=== PATIENT | female | born 1965 | race Caucasian/White ===

== ENCOUNTER → 2017-02-19 | Outpatient (CLI) | payer OTHER ==
[~2017-02-19] MED LIST: CYCL-36 PO; LORT7.5T3 PO; Z.0.NO CURRENT MEDS
--- NOTE | 2017-02-19 11:33 | RADRPT ---
EXAM DATE/TIME: 02/19/2017 11:01 [facility] COMPARISON: No previous studies available for comparison. INDICATIONS : Evalulate for penumonia, pneumothroax, or communicable disease. Pre op for right knee arthroscopy. MEDICAL HISTORY : Diverticulitis. Deep venous thrombosis. SURGICAL HISTORY : Lumpectomy. ENCOUNTER: Initial ACUITY: 1 day PAIN SCORE: 0/10 LOCATION: chest FINDINGS: PA and lateral views of the chest demonstrate the lungs to be symmetrically aerated without evidence of mass, infiltrate or effusion. Calcified nodule in the right apex likely reflects a granuloma. The cardiomediastinal contours are unremarkable. Surgical clips are seen in the left axilla. The Osseou s structures are intact. CONCLUSION: 1. No acute cardiopulmonary disease. Jaiver Corcoran MD on February 19, 2017 at 11:30 Board Certified Radiologist. This report was verified electronically.
[2017-02-19 11:45] LABS: PROTHROMBIN TIME - PATIENT 10.9 SEC (9.8-11.6)
[2017-02-19 11:54] LABS: BLOOD, URINE SMALL (NEG); GLUCOSE,URINE NEG (NEG); KETONE, URINE NEG (NEG); MUCUS URINE FEW /lpf (OCC); NITRITE,URINE NEG (NEG); PH, URINE 5.5 (5.0-8.5); SQUAMOUS EPITHELIAL CELL URINE <1 /hpf (0-5); URINE COLOR YELLOW (YELLW/STRAW)
[2017-02-19 11:55] LABS: COMMENT (UR) CULT NOT INDICATED; CULTURE IF INDICATED CULT NOT INDICATED
[2017-02-19 12:00] LABS: BICARBONATE 29.8 MEQ/L (21.0-32.0); POTASSIUM 4.1 MEQ/L (3.5-5.1)
--- NOTE | 2017-02-20 18:21 | EKG ---
Date Performed: 02/19/2017 Time Performed: 10:35:31 PTAGE: 51 years EKG: Sinus rhythm WITH SINUS ARRHYTHMIA WITH FIRST DEGREE AV BLOCK ABNORMAL ECG PREVIOUS TRACING : 09/28/2011 22.49 Compared to prior tracing no significant change DOCTOR: Anny Gurrola Interpretating Date/Time 02/20/2017 18:20:02
== END ==
LOC: CPRE 10:12
PROVIDERS: ATTEND Orthopaedic Surgery
DX: Z01.810 Encounter for preprocedural cardiovascular examination (principal); Z01.811 Encounter for preprocedural respiratory examination; Z01.812 Encounter for preprocedural laboratory examination; M65.861 Other synovitis and tenosynovitis, right lower leg; S83.241D Other tear of medial meniscus, current injury, right knee, subsequent encounter; R94.31 Abnormal electrocardiogram [ECG] [EKG]; X58.XXXD Exposure to other specified factors, subsequent encounter
CPT/HCPCS: 71020; 80048; 81001; 85610; 93005

== ENCOUNTER → 2017-02-28 | Day surgery (SDC) | payer OTHER ==
--- NOTE | 2017-02-24 18:08 | MH ---
cc: JAMESON CASTANEDA M.D. DATE OF ADMISSION 02/28/2017 ADMISSION DIAGNOSIS A medial meniscus tear of the right knee, tricompartmental chondromalacia right knee, effusion right knee, synovitis right knee, popliteal cyst right knee and pain of the right knee. HISTORY OF THE PRESENT ILLNESS The patient is a 51-year-old white female who has experienced pain of her right knee of greater than 6 months duration. She had noted the gradual onset of her discomfort generalized about the anterior aspect of her right knee unrelated to injury or unusual activity. Initially she did not seek any evaluation and conformed to conservative management which included taking ibuprofen and modifying her activity level. Unfortunately she was unable to appreciate any improvement and because of lingering symptoms elected to undergo further disposition for which she was seen by the undersigned physician in November of this year. At that time x-ray studies of the right knee were without evidence of any acute bony abnormality. The patient was diagnosed as having a transient synovitis with pain and possible internal derangement of her right knee. She was treated with the diclofenac 75 mg and followed on an outpatient basis thereafter. She described minimal benefit from the prescribed medication while remaining symptomatic with pain about her knee and thus recommendation was made to proceed with an MRI scan the results of which identified a nondisplaced horizontal and vertical tear of the posterior horn and body of the medial meniscus with severe focal chondral fissuring and fraying of the medial femoral condyle and mild to moderate tricompartmental chondral changes being noted. A small effusion was associated with moderate synovitis and a moderate to large leaking popliteal cyst. The patient returned to the office in further disposition at which time the findings of her scan were reviewed and treatment options discussed. The pros and cons of continuing with further conservative intervention versus operative treatment that would involve arthroscopic surgery and possible arthrotomy was outlined in detail. Emphasis was made regarding the fact that the decision to proceed with surgery would be left entirely to the patient's discretion. The patient felt that her symptoms have persisted for a long enough interval of time that she was ready to proceed with surgery as had been discussed, and in compliance with her wishes she has currently been scheduled for admission in order that the above be accomplished. PAST MEDICAL HISTORY Her past medical history, hospitalizations and surgeries have included: 1. A lumpectomy of the left breast subsequently being diagnosed as a malignancy for which the patient did undergo additional chemo and radiation therapy. 2. She has also been hospitalized in the past for of pulmonary embolus. She denies active medical illnesses. MEDICATIONS She takes no prescribed medications. ALLERGIES There are no indicated drug allergies. REVIEW OF SYSTEMS She does wear glasses. Denies headache, seizure or syncope. No sinus congestion or epistaxis. Auditory acuity intact. No tinnitus. No bleeding gums or dysphagia. Denies cough, shortness of breath, upper respiratory infection, pneumonia or tuberculosis. No angina or heart disease. Her appetite is good. Bowel movements are regular. No hepatitis, gallbladder disease, ulcers or hemorrhoids. There is a positive history for urinary tract infection. No kidney stones. No history of fractures. No psychiatric illness. Her remaining review of systems is unremarkable and noncontributory. FAMILY HISTORY The patient has been 29 years. Her is 63 years of age and described as being in good health. Two sons and one daughter indicated to be in good health. Family history is otherwise positive for hypertension, heart disease and breast cancer. SOCIAL HISTORY The patient completed a high school education with additional college credits. She\ is employed at a local [employer] in the [facility]. She denies active use of tobacco for at least 29 years but had been less than one-pack per day user for approximately one year prior to that time. Ethanol consumption on a limited and social basis. PHYSICAL EXAMINATION Height 5 feet 10 inches, weight 216 pounds. GENERAL: An alert, oriented and responsive 51-year-old white female who sits quietly upon examination table with no obvious distress. HEAD, EARS, EYES, NOSE, AND THROAT: Pupils are equal, round and reactive to light. Extraocular movements full. Sclerae clear. External nares clear. External auditory canals clear. Dental intact. Mucous membranes pink and moist. Pharynx clear. NECK: Supple. Active range of motion with no appreciable pain. Carotid pulse palpable bilaterally. Trachea midline. Thyroid without enlargement. LUNGS: Clear to auscultation and percussion. No CVA tenderness. No discomfort throughout the dorsal lumbar spine. HEART: Regular rhythm. No murmur or gallop. ABDOMEN: Soft, nontender. Bowel sounds present. PELVIC: Per primary care physician. EXTREMITIES: Right knee, there is no significant swelling but there is a mild fullness about the knee suspicious for an intra-articular effusion. Medial joint line tenderness. Apprehension and compression sign negative. Mild limitation of mobility at the extreme of flexion without crepitation or instability. No collateral ligamentous laxity. Rani test and drawer sign negative. Pivot shift and Wnady sign positive for medial compartment pain. Distal sensory grossly intact. Antalgic gait. NEUROLOGIC: Cranial nerves II-XII grossly intact. IMPRESSION Medial meniscus tear of the right knee, tricompartmental chondromalacia right knee, effusion right knee, synovitis right knee, popliteal cyst right knee and pain of the right knee. PLAN Arthroscopic surgery and possible arthrotomy right knee. The nature of the planned surgical procedure, the potential complications and risks associated, the expectations of surgery and the consent form were thoroughly reviewed with the patient in the presence of her prior to admission to the hospital. Margarette has indicated her full understanding regarding all of the above and given consent to proceed with treatment as outlined. Oncology clearance has been completed per Dr. Zhao Odom. Jameson Castaneda MD NBS/KK /5:29 PM /5:51 PM
[~2017-02-28] VITALS: Ht 177.8 cm; Wt 98.6 kg
[~2017-02-28] MED LIST changes: +*HYDROmorphone PF 1 MG VIAL PERIprocedural Use ONLY ONE; +*morphine SULFATE 8 MG/ML PERIprocedure ONLY ONE; +ACETAMINOPHEN/HYDROcodone 325 MG/5 MG TAB PO PRN; +CHLORHEXIDINE GLUCONATE 2 % 1 PACK (2 CLOTHS) TOPICAL PRN; -CYCL-36 PO; +DO NOT ADM ANY ANTICOAGULANT DRUGS PRN; +FAMOTIDINE 20 MG/2 ML VIAL ONE; +INSULIN HUMAN REGULAR 1,000 UNITS/10 ML VIAL SQ PRN; +KETOROLAC TROMETHAMINE 60 MG/2 ML (IM) VIAL IM ONE; +LACTATED RINGER'S 1000 ML INJ 1,000 ML IV ONE; +LACTATED RINGER'S 1000 ML IV PRN; +LIDOCAINE HCL 2% PF SOLN 10 ML VIAL INFIL ONE; -LORT7.5T3 PO; +METOPROLOL TARTRATE 25 MG TAB PO PRN; +MIDAZOLAM HCL 2 MG/2 ML VIAL ONE; +MORPHINE SULFATE 8 MG/ML INJ IM PRN; +ONDANSETRON HCL 4 MG/2 ML VIAL IV PUSH ONE; +POVIDONE IODINE 5% (ANTISEPSIS KIT) 4 APPLICATIONS EACH NARE PRN; +POVIDONE IODINE 7.5% SCRUB 118 ML BOTTLE TOPICAL SCH; +PROMETHAZINE INJ 25 MG/ML VIAL IM PRN; +PROPOFOL 200 MG/20 ML AMP IV ONE; +SODIUM CHLORID 0.9% 500 ML IV PRN; +TRIAMCINOLONE ACETONIDE 40 MG/ML VIAL I-ARTICULR ONE; -Z.0.NO CURRENT MEDS; +ceFAZolin 2 GM PREMIX 50 ML IV SCH; +ceFAZolin 2 GM PREMIX 50 ML ONE
[2017-02-28 07:29] VITALS: BP 131/61; PULSE 51; RESP 16; TEMP 98.1; O2SAT 98
[2017-02-28 12:45] VITALS: BP 117/69; PULSE 51; RESP 18; TEMP 97.8; O2SAT 98
--- NOTE | 2017-02-28 21:22 | MP ---
cc: JAMESON CASTANEDA DATE OF SURGERY 02/28/17 PREOPERATIVE DIAGNOSIS Medial meniscus tear of the right knee with tricompartmental chondromalacia POSTOPERATIVE DIAGNOSIS Medial meniscus tear of the right knee with tricompartmental chondromalacia including synovial plica right knee PROCEDURE 1. Partial medial meniscectomy right knee 2. Chondroplasty of the patellofemoral joint and resection of synovial plica right knee SURGEON Harjeet Castaneda MD ANESTHESIA General by LMA FORMAT Following the induction of satisfactory general anesthesia by LMA insertion as completed per the Department of Anesthesia, examination of the right knee revealed a satisfactory range of motion with no appreciable ligamentous instability. The extremity proper was positioned in the surgical processor knee leonard prepped with Betadine solution and draped into a sterile field in the routine manner. Prior to initiation of the actual procedure, the standard time-out protocol was completed. All parameters were appropriately addressed and confirmed by operating room personnel. Arthroscopic instrumentation was introduced through stab wound utilizing cannula with sharp and blunt trocar, the inflow irrigation by way of a medial suprapatellar portal, the arthroscope through a lateral parapatellar portal and a probe through a medial parapatellar portal. Examination of the suprapatellar pouch revealed a prominent synovial plica extending about the superior and medial aspect of the suprapatellar region. Moderate degenerative changes throughout the patellofemoral articulation consistent with chondromalacia. Within the medial compartment, a degenerative tear involving the posterior horn of the medial meniscus was noted. The adjacent articular surfaces demonstrated localized chondromalacia changes. Examination of the intercondylar region noted an intact anterior cruciate ligament. Examination of the lateral compartment was without evidence of internal derangement with lateral meniscus appearing intact. Attention was redirected to the medial compartment. Utilizing a 3.8 full radius resector, a partial medial meniscectomy was accomplished as well as debridement throughout the articular surfaces. The shaver was thereafter oriented into the patellofemoral articulation with a right pleural chondroplasty of patellofemoral joint was accomplished. Thereafter, the previously identified synovial plica was resected utilizing the same instrument. Upon completion of same, the joint space was thoroughly lavaged and suctioned dry. An intra-articular Kenalog lidocaine injection was completed. Portal sites were reapproximated with Steri-Strips over which Xeroform gauze and a bulky dry sterile dressing were placed. Anesthesia was discontinued. The patient thus transferred to a hospital stretcher and returned to the recovery room in satisfactory condition having tolerated her operative procedure well. Estimated blood loss was less than 5 mL. MD DANIKA Márquez/ /11:34 AM /9:11 PM
== END | disposition home or self-care (01) ==
LOC: HSDC 06:38
PROVIDERS: ATTEND Orthopaedic Surgery
DX: M23.211 Derangement of anterior horn of medial meniscus due to old tear or injury, right knee (principal); M71.21 Synovial cyst of popliteal space [Baker], right knee; M25.461 Effusion, right knee; M94.261 Chondromalacia, right knee; Z86.711 Personal history of pulmonary embolism; Z85.3 Personal history of malignant neoplasm of breast
CPT/HCPCS: 01400; 29881; J0690; J1170; J1885; J2250; J2270; J2405; J3010; J3301; J7120

== ENCOUNTER 2017-11-18 07:44 | Emergency (ER) | payer OTHER ==
[~2017-11-18] VITALS: Ht 177.8 cm; Wt 94.0 kg
[2017-11-18 07:47] VITALS: BP 141/87; PULSE 72; RESP 18; TEMP 98; O2SAT 98
--- NOTE | 2017-11-18 08:00 | PD ---
HPI Chief Complaint: Injury Time Seen by Provider: 07:50 Travel History International Travel<30 days: No Contact w/Intl Traveler<30days: No Traveled to known affect area: No History of Present Illness HPI This 52-year-old female complaining of pain in the left third finger. She was walking her dog. The leash was wrapped around her hand. The dog chased a raccoon in her hand was pulled forward. She is having pain in her left third finger. It is bent at the PIP and she is unable to extend. The other fingers are okay there is no injury to the wrist or any other injury PFSH Past Medical History Blood Disorders: No Cancer: Yes (LEFT BREAST CA) Cardiovascular Problems: No Diabetes: No Diverticulitis: Yes Deep Vein Thrombosis: Yes (HX OF PE LEFT LUNG) Endocrine: No Gastrointestinal Disorders: No Genitourinary: No Hepatitis: No Immune Disorder: No Implanted Vascular Access Dvce: No Musculoskeletal: No Neurologic: No Psychiatric: No Reproductive: No Respiratory: No Thyroid Disease: No ?: Not Menopausal: No Past Surgical History Abdominal Surgery: No AICD: No Cardiac Surgery: No Ear Surgery: No Endocrine Surgery: No Eye Surgery: No Genitourinary Surgery: No Gynecologic Surgery: Yes (LEFT BREAST LUMPECTOMY) Joint Replacement: No Oral Surgery: No Pacemaker: No Thoracic Surgery: No Other Surgery: No Social History Alcohol Use: Yes (OCCAS. WINE) Tobacco Use: No Substance Use: No Allergies-Medications (Allergen,Severity, Reaction): Coded Allergies: No Known Allergies (Verified Adverse Reaction, Unknown, 11/18/17) Reported Meds & Prescriptions Reported Meds & Active Scripts Active No Active Prescriptions or Reported Medications Review of Systems General / Constitutional: No: Fever, Chills HENT: No: Headaches Cardiovascular: No: Chest Pain or Discomfort Respiratory: No: Cough Gastrointestinal: No: Vomiting, Diarrhea Musculoskeletal: Positive: Pain Physical Exam Narrative GENERAL: Female SKIN: Focused skin assessment warm/dry. HEAD: Atraumatic. Normocephalic. EYES: Pupils equal and round. No scleral icterus. No injection or drainage. ENT: No nasal bleeding or discharge. Mucous membranes pink and moist. NECK: Trachea midline. No JVD. MUSCULOSKELETAL: The left arm is the affected extremity. There is no tenderness of the wrist. The middle finger is held in a flexed position and is quite tender at the PIP. There is a small wound on the dorsal surface of the PIP NEUROLOGICAL: Awake and alert. No obvious cranial nerve deficits. Motor grossly within normal limits. Normal speech. PSYCHIATRIC: Appropriate mood and affect; insight and judgment normal. Data Data Last Documented VS Vital Signs Date Time Temp Pulse Resp B/P (MAP) Pulse Ox O2 Delivery O2 Flow Rate FiO2 11/18/17 07:55 97 Room Air 11/18/17 07:47 98.0 72 18 141/87 (105) Orders Orders Finger ([id number]) (11/18/17 07:53) Lidocaine 1% Inj (Xylocaine 1% Inj) (11/18/17 08:15) Lidocaine Pf 1% Inj (Xylocaine-Mpf 1% In (11/18/17 08:20) Finger ([id number]) (11/18/17 08:38) MDM Medical Decision Making Medical Screen Exam Complete: Yes Emergency Medical Condition: Yes Medical Record Reviewed: Yes Differential Diagnosis Differential includes fracture, dislocation Narrative Course X-ray shows a volar dislocation of the PIP. Digital block was performed and the dislocation was reduced. Patient tolerated the procedure well. There is a small wound on the PIP at the joint so she will be placed on Keflex. She has been placed in a splint and is to follow-up with Dr. Robertson Procedures Procedure Narrative Patient expressed agreement with the procedure. A digital block was done with 1 % lidocaine at the base of the third finger bilaterally. After good anesthesia was obtained the fracture was reduced with longitudinal traction Diagnosis Primary Impression: Dislocation left third PIP Referrals: Rajesh Robertson III, MD Departure Forms: Tests/Procedures Scripts Hydrocodone-Acetaminophen (Hydrocodone-Acetaminophen) 5-325 mg Tab 1 TAB PO Q4H Y for PAIN for 12 Days, #72 TAB 0 Refills Prov: Ej Lee MD 11/18/17 Cephalexin (Keflex) 500 Mg Capsule 500 MG PO Q6H for Infection for 7 Days, #28 CAP 0 Refills Prov: Ej Lee MD 11/18/17 Disposition: 01 DISCHARGE HOME Condition: Stable Ej Lee MD Nov 18, 2017 08:00
[2017-11-18] MEDS ORDERED: LIDOCAINE HCL 1% 30 ML VIAL INFIL ONE (08:15)
--- NOTE | 2017-11-18 08:16 | RADRPT ---
EXAM DATE/TIME: 11/18/2017 07:58 [facility] COMPARISON: No previous studies available for comparison. INDICATIONS : Left third digit pain after finger getting caught/pulled in dog leashes. MEDICAL HISTORY : None. SURGICAL HISTORY : None. ENCOUNTER: Initial ACUITY: 1 day PAIN SCORE: 10/10 LOCATION: Left third digit FINDINGS: There is dislocation of the proximal PIP joint of the third finger with plantar displacement of the d istal digit. A very subtle calcified fragment seen near the head of the first proximal phalanx may re flect a small avulsion fracture. Remaining osseous structures are intact. Soft tissues are unremarkab le. CONCLUSION: 1. Dislocation of the third finger proximal PIP joint with probable very subtle avulsion fracture of the proximal phalanx, as above. Javier Corcoran MD on November 18, 2017 at 8:10 Board Certified Radiologist. This report was verified electronically.
[2017-11-18] MEDS ORDERED: LIDOCAINE HCL 1% PF 10 ML VIAL ONE (08:20)
--- NOTE | 2017-11-18 09:20 | RADRPT ---
EXAM DATE/TIME: 11/18/2017 08:47 [facility] COMPARISON: FINGER LEFT 3RD DIGIT ([id number]), November 18, 2017, 7:58. INDICATIONS : Post reduction of left third digit. MEDICAL HISTORY : None. SURGICAL HISTORY : None. ENCOUNTER: Subsequent ACUITY: 1 day PAIN SCORE: 0/10 LOCATION: Left third digit FINDINGS: The dislocated proximal interphalangeal joint of the long finger has been reduced into normal alignme nt. There is a tiny, proximally displaced dorsal plate avulsion fracture fragment related to the exte nsor mechanism. CONCLUSION: Long finger PIP dislocation has been reduced. Tiny dorsal plate avulsion fracture fragment. Alexandro Tinoco MD on November 18, 2017 at 9:16 Board Certified Radiologist. This report was verified electronically.
[2017-11-18] MEDS ORDERED: CEPH-460 PO (09:51)
[2017-11-18] MEDS ORDERED: HYDR-3516 PO (09:51)
[2017-11-18 10:04] VITALS: BP 128/74
== END 2017-11-18 10:05 | disposition home or self-care (01) ==
LOC: PHED 07:44
DX: S62.613A Displaced fracture of proximal phalanx of left middle finger, initial encounter for closed fracture (principal); Z86.718 Personal history of other venous thrombosis and embolism; Z86.711 Personal history of pulmonary embolism; Z85.3 Personal history of malignant neoplasm of breast; W23.0XXA Caught, crushed, jammed, or pinched between moving objects, initial encounter; Y93.K1 Activity, walking an animal
CPT/HCPCS: 26770; 73140